=== PATIENT | female | born 1995 | race American Indian/Alaskan Native ===

== ENCOUNTER 2016-04-19 08:07 | Emergency (ER) | payer OTHER ==
[2016-04-19 09:01] LABS: Basophils % (Auto) 0.7 % (0.0-1.8); Eosinophils % (Auto) 1.8 % (0.0-4.3); Hematocrit 37.4 % (30.3-42.9); Hemoglobin 12.2 gm/dl (10.1-14.3); Mean Corpuscular HGB Conc 33 % (30-34); Mean Corpuscular Hemoglobin 29 pg (28-32); Mean Corpuscular Volume 88 fl (79-97); Platelet Count 193 K/mm3 (140-440); Red Blood Count 4.24 M/mm3 (3.65-5.03); Red Cell Distribution Width 13.7 % (13.2-15.2)
[2016-04-19 09:13] LABS: Anion Gap 16 mmol/L; BUN/Creatinine Ratio 12.85; Blood Urea Nitrogen 9 mg/dL (7-17); Calcium 8.5 mg/dL (8.4-10.2); Carbon Dioxide 24 mmol/L (22-30); Chloride 104.3 mmol/L (98-107); Glucose 89 mg/dL (65-100); Potassium 4.2 mmol/L (3.6-5.0); Sodium 140 mmol/L (137-145)
--- NOTE | 2016-04-19 11:38 | Emergency Department Report ---
ED Chest Pain HPI - General Chief Complaint: Chest Pain Stated Complaint: DIZZINESS Time Seen by Provider: 04/19/16 11:24 Source: patient Mode of arrival: Ambulatory Limitations: No Limitations - History of Present Illness Initial Comments: Pt reports chest pain, just R of midsternal, x 2 days. Reports sx worsen with deep breathing. No recent cough/URI. No hx of DVT/PE, no recent travel, no leg swelling. Does take OCPs. Denies any SOB, n/v. Also reports ZEE and dizziness that has nearly resolved at this time. LMP 1 week. MD Complaint: chest pain -: Gradual, days(s) (2) Onset: during rest Pain Location: right chest Pain Radiation: none Severity: moderate Severity scale (0 -10): 5 Quality: aching Consistency: constant Improves With: nothing Worsens With: inspiration re: denies: nausea, vomting, diaphoresis, dyspnea Other Symptoms: denies: cough, fever, syncope, rash, acid taste in mouth, palpitations Treatments Prior to Arrival: none Aspirin use within the Past 7 Days: (0) No - Related Data Previous Rx's Medication Instructions Recorded Last Taken Type Naproxen [Naprosyn] 500 mg PO BID PRN #20 tablet 04/19/16 Unknown Rx methylPREDNISolone [Medrol] 4 mg PO QAM #1 tab.ds.pk 04/19/16 Unknown Rx Allergies Allergy/AdvReac Type Severity Reaction Status Date / Time No Known Allergies Allergy Verified 11/04/14 09:10 CHANDLER score - Chandler Score Age > 65: (0) No Aspirin use within the Past 7 Days: (0) No 3 or more CAD Risk Factors: (0) No 2 or more Angina events in past 24 hrs: (0) No Known CAD with more than 50% Stenosis: (0) No Elevated Cardiac Markers: (0) No ST Deviation Greater than 0.5mm: (0) No CHANDLER Score: 0 ED Review of Systems ROS: Stated complaint: DIZZINESS Other details as noted in HPI Comment: All other systems reviewed and negative Constitutional: denies: chills, fever Eyes: denies: eye pain, eye discharge, vision change ENT: denies: ear pain, throat pain Respiratory: denies: cough, shortness of breath, wheezing Cardiovascular: as per HPI, chest pain. denies: palpitations Endocrine: no symptoms reported Gastrointestinal: denies: abdominal pain, nausea, diarrhea Genitourinary: denies: urgency, dysuria, discharge Musculoskeletal: denies: back pain, joint swelling, arthralgia Skin: denies: rash, lesions Neurological: headache. denies: weakness, paresthesias Psychiatric: denies: anxiety, depression Hematological/Lymphatic: denies: easy bleeding, easy bruising ED Past Medical Hx - Past Medical History Additional medical history: Hx chest pain - Surgical History Past Surgical History?: No - Social History Smoking Status: Never Smoker Substance Use Type: None - Medications Home Medications: Home Medications Medication Instructions Recorded Confirmed Last Taken Type Naproxen [Naprosyn] 500 mg PO BID PRN #20 tablet 04/19/16 Unknown Rx methylPREDNISolone [Medrol] 4 mg PO QAM #1 tab.ds.pk 04/19/16 Unknown Rx ED Physical Exam - General Limitations: No Limitations General appearance: alert, in no apparent distress - Head Head exam: Present: atraumatic, normocephalic - Eye Eye exam: Present: normal appearance, PERRL, EOMI - ENT ENT exam: Present: normal exam, normal orophraynx, mucous membranes moist - Neck Neck exam: Present: normal inspection, full ROM - Respiratory Respiratory exam: Present: normal lung sounds bilaterally. Absent: respiratory distress, wheezes - Cardiovascular Cardiovascular Exam: Present: regular rate, normal rhythm. Absent: systolic murmur, diastolic murmur, rubs, gallop - GI/Abdominal GI/Abdominal exam: Present: soft, normal bowel sounds. Absent: distended, tenderness, guarding, rebound - Extremities Exam Extremities exam: Present: normal inspection. Absent: pedal edema, calf tenderness - Back Exam Back exam: Present: normal inspection - Neurological Exam Neurological exam: Present: alert, oriented X3, CN II-XII intact, normal gait, reflexes normal. Absent: motor sensory deficit - Psychiatric Psychiatric exam: Present: normal affect, normal mood - Skin Skin exam: Present: warm, dry, intact, normal color. Absent: rash ED Course Vital Signs 04/19/16 08:33 Temperature 98.5 F Pulse Rate 70 Respiratory 16 Rate Blood Pressure 117/73 O2 Sat by Pulse 100 Oximetry - Reevaluation(s) Reevaluation #1: 04/19/16 12:39 NAD, stable for d/c. ED Medical Decision Making - Lab Data Result diagrams: 04/19/16 08:42 04/19/16 08:42 - EKG Data -: EKG Interpreted by Me EKG shows normal: sinus rhythm, axis, intervals, QRS complexes, ST-T waves Rate: normal - EKG Data When compared to previous EKG there are: previous EKG unavailable - Radiology Data Radiology results: report reviewed naf - Medical Decision Making Pt with atypical chest pain. HEART = 0. D-dimer is negative. EKG, CXR normal. Suspect pleurisy. Treatment, follow up, return precautions given to pt. - Differential Diagnosis pleurisy, MA, PE Critical care attestation.: If time is entered above; I have spent that time in minutes in the direct care of this critically ill patient, excluding procedure time. ED Disposition Clinical Impression: Chest pain Qualifiers: Chest pain type: unspecified Qualified Code(s): R07.9 - Chest pain, unspecified Disposition: DISCHARGED TO HOME OR SELFCARE Is pt being admited?: No Condition: Good Instructions: Chest Pain (ED), Pleurisy (ED) Prescriptions: methylPREDNISolone [Medrol] 4 mg PO QAM #1 tab.ds.pk Naproxen [Naprosyn] 500 mg PO BID PRN #20 tablet PRN Reason: Pain Referrals: PRIMARY CAREMD [Primary Care Provider] - 3-5 Days WESLEY VÁSQUEZ MD [Staff Physician] - 3-5 Days Forms: Work/School Release Form(ED) Time of Disposition: 12:43
--- NOTE | 2016-04-19 11:47 | XRay Report ---
CHEST 2 VIEWS INDICATION: Pain. COMPARISON: 02/10/2011. FINDINGS: PA and lateral chest radiographs demonstrate normal cardiomediastinal silhouette. Clear lungs, though inspiration poorer. Intact bones. CONCLUSION: No acute disease in the chest. Thank you for the opportunity to participate in this patient's care.
[2016-04-19 12:48] VITALS: BP 137/85
== END 2016-04-19 12:52 | disposition home or self-care (01) ==
LOC: ED 08:07
DX: R07.9 Chest pain, unspecified (principal)
CPT/HCPCS: 36415; 71020; 80048; 84484; 85025; 85379; 93005; 93010

== ENCOUNTER 2016-06-12 19:44 | Emergency (ER) | payer OTHER ==
[2016-06-12 20:26] VITALS: BP 128/78
[2016-06-12 21:55] LABS: Bacteria,Urine 1+ /HPF (Negative); Bilirubin,Urine NEG (Negative); Blood,Urine NEG (Negative); Ketones,Urine NEG (Negative); Leukocyte Esterase,Urine MOD (Negative); Mucus,Urine FEW /HPF; Nitrite,Urine NEG (Negative); Urobilinogen,Urine < 2.0 mg/dL (<2.0)
== END 2016-06-13 01:00 | disposition left against medical advice (07) ==
LOC: ED 19:44
DX: R10.9 Unspecified abdominal pain (principal); Z53.21 Procedure and treatment not carried out due to patient leaving prior to being seen by health care provider
CPT/HCPCS: 81001; 81025

== ENCOUNTER 2016-12-22 19:10 | Emergency (ER) | payer MEDICAID, OTHER ==
[2016-12-22 20:00] VITALS: BP 119/76
== END 2016-12-22 19:15 | disposition left against medical advice (07) ==
LOC: ED 19:10 → EDSTATUS 19:38 → TRG 19:45 → ED 19:46 → EDSTATUS 22:14
DX: Z53.21 Procedure and treatment not carried out due to patient leaving prior to being seen by health care provider (principal)

== ENCOUNTER 2017-02-05 19:56 | Outpatient (CLI) | payer MEDICAID ==
[2017-02-05] MEDS ORDERED: VISTARIL PO PRN (22:20)
[2017-02-08 03:59] VITALS: BP 127/72
== END 2017-02-05 22:40 | disposition home or self-care (01) ==
LOC: TRG 19:56
PROVIDERS: ATTEND Obstetrics & Gynecology
DX: O47.1 False labor at or after 37 completed weeks of gestation (principal); Z3A.39 39 weeks gestation of pregnancy
CPT/HCPCS: Q0177

== ENCOUNTER 2017-02-07 19:44 | Inpatient (IN) | payer MEDICAID ==
--- NOTE | 2017-02-07 20:42 | History and Physical Report ---
History of Present Illness Date of examination: 02/07/17 Date of admission: 02/07/17 20:34 Chief complaint: painful contractions every 3-5 minutes History of present illness: EDC Confirmation: 02/09/2017 Past History : 2 Term Births: 0 Premature Births: 0 Living Children: 0 Para: 0 Mult. Births: 0 Prev : 0 Prev. attempt? 0 Aborta: 1 Elect. Ab: 1 Spont. Ab: 0 Ectopics: 0 # 1 Delivery date: 04/2015 Delivery type: EAB Past Medical History: Nevaeh Past Surgical History: D&C: (2015) Family History Summary: Mother (biol.) - Has No Family History of Ovarvian Cancer - Entered On: 2016 Mother (biol.) - Has No Family History of Breast Cancer - Entered On: 08/29/2016 Mother (biol.) - Has Family History of Hypertension - Entered On: 08/29/2016 Mother (biol.) - Has Family History of Diabetes - Entered On: 08/29/2016 Mother (biol.) - Has Family History of CVA or Stroke - Entered On: 08/29/2016 Mother (biol.) - Has Family History of Coronary Heart Disease - Entered On: 08/29 Mother (biol.) - Has Family History Colon Cancer - Entered On: 08/29/2016 Social History: Patient is single unemployed Risk Factors: Smoked Tobacco Use: Never smoker Drug use: no Alcohol use: yes Drinks per day: social Dietary Counseling: pn yes Past Medical History 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 of genital herpes: no Partner hx. of genital herpes: no Genetic History Congenital Heart Defect: Mom: no Dad: no Олег Disease: Mom: no Dad: no Thalassemia Mom: no Dad: no Neural Tube Defect Mom: no Dad: no Down's Syndrome Mom: no Dad: no Paramjit-Sachs Mom: no Dad: no Sickle Cell Disease/Trait Mom: no Dad: no Hemophilia Mom: no Dad: no Muscular Dystrophy Mom: no Dad: no Cystic Fibrosis Mom: no Dad: no [place] Chorea Mom: no Dad: no Mental Retardation Mom: no Dad: no Fragile X Mom: no Dad: no Other Genetic/Chromosomal Disorder Mom: no Dad: no Child w/other defect Mom: no Dad: no Enviromental Exposures Xray Exposure: no Medication, drug, or alcohol use since LMP: no Chemical/Other Exposure: no Exposure to Cat Liter: no Hx of Parvovirus (Fifth Disease): no Active Medications (reviewed today): FORMULA 27-1 MG ORAL TABS ( VIT-FE FUMARATE-FA) 1 po q day as directed FLAGYL 500 MG TABS (METRONIDAZOLE) take 4 po now Current Allergies (reviewed today): No known allergies Past History Past Medical History: other (see HPI) Past Surgical History: other (see HPI) - Obstetrical History Expected Date of Delivery: 02/09/17 Actual Gestation: 39 Week(s) 5 Day(s) : 2 Para: 0 Hx # Term Pregnancies: 0 Number of Pregnancies: 0 Spontaneous Abortions: 0 Induced : 1 Number of Living Children: 0 Medications and Allergies Allergies Allergy/AdvReac Type Severity Reaction Status Date / Time No Known Allergies Allergy Verified 04/21/16 10:40 Home Medications Medication Instructions Recorded Confirmed Last Taken Type Naproxen [Naprosyn] 500 mg PO BID PRN #20 tablet 04/19/16 Unknown Rx methylPREDNISolone [Medrol] 4 mg PO QAM #1 tab.ds.pk 04/19/16 Unknown Rx ALBUTEROL Inhaler [ProAir HFA 1 puff IH Q4H PRN #1 inha 04/21/16 Unknown Rx Inhaler] Naproxen [Naprosyn TAB] 500 mg PO BID PRN #20 tablet 04/21/16 Unknown Rx Phenylephrine/Dm/Acetaminop/GG 10 ml PO Q6H PRN #1 bottle 04/21/16 Unknown Rx [Mucinex Gsgb-Gla-Mscsuxrjla Lq] Review of Systems All systems: negative - Vital Signs Vital signs: Vital Signs Pulse BP Pulse Ox 102 H 128/65 97 02/07/17 19:57 02/07/17 19:57 02/07/17 19:57 Temp Pulse Resp BP Pulse Ox 98.1 F 117 H 18 128/65 98 02/07/17 20:08 02/07/17 20:32 02/07/17 20:08 02/07/17 20:08 02/07/17 20:32 - Physical Exam Breasts: Positive: normal Cardiovascular: Regular rate Lungs: Positive: Clear to auscultation, Normal air movement Abdomen: Positive: normal appearance, soft, normal bowel sounds Genitourinary (Female): Positive: normal external genitalia, normal perenium Vulva: both: normal Vagina: Positive: normal moisture Uterus: Positive: normal size Anus/Rectum: Positive: normal perianal skin Deep Tendon Reflex Grade: Normal +2 - Obstetrical FHR: auscultation normal, category 1 Uterine Contraction Monitor Mode: External Cervical Dilatation: 4 (BBOW) Cervical Effacement Percentage: 70 station: -1 Uterine Contraction Frequency (min): 3-4 Uterine Contraction Duration: 60 Uterine Contraction Pattern: Regular Uterine Tone Measurement Phase: Contraction Uterine Contraction Intensity: Moderate Results All other labs normal. Patient: KACY PRINCE ID: [id number] Note: All result statuses are Final unless otherwise noted. Tests: (1) Profile I ([id number]) HBsAg Screen Negative Negative *1 Rubella Antibodies, IgG 1.93 index Immune >0.99 *2 Non-immune <0.90 Equivocal 0.90 - 0.99 Immune >0.99 ABO Grouping A *3 Rh Factor Positive *4 Please note: Prior records for this patient's ABO / Rh type are not available for additional verification. Antibody Screen Negative Negative *5 RPR Non Reactive Non Reactive *6 WBC 6.6 x10E3/uL 3.4-10.8 *7 RBC 4.11 x10E6/uL 3.77-5.28 *8 Hemoglobin 12.0 g/dL 11.1-15.9 *9 Hematocrit 36.8 % 34.0-46.6 *10 MCV 90 fL 79-97 *11 MCH 29.2 pg 26.6-33.0 *12 MCHC 32.6 g/dL 31.5-35.7 *13 RDW 14.4 % 12.3-15.4 *14 Platelets 189 x10E3/uL 150-379 *15 Neutrophils 68 % *16 Lymphs 27 % *17 Monocytes 5 % *18 Eos 0 % *19 Basos 0 % *20 ! Immature Cells <No Reported Value> *21 Neutrophils (Absolute) 4.5 x10E3/uL 1.4-7.0 *22 Lymphs (Absolute) 1.8 x10E3/uL 0.7-3.1 *23 Monocytes(Absolute) 0.3 x10E3/uL 0.1-0.9 *24 Eos (Absolute) 0.0 x10E3/uL 0.0-0.4 *25 Baso (Absolute) 0.0 x10E3/uL 0.0-0.2 *26 ! Immature Granulocytes 0 % *27 ! Immature Grans (Abs) 0.0 x10E3/uL 0.0-0.1 *28 ! NRBC <No Reported Value> *29 Hematology Comments: <No Reported Value> *30 Tests: (2) AFP Tetra ([id number]) ! Results Report *31 ! Test Results: *Screen Negative* *32 ! Gest. Age on Collection Date 18.6 WEEKS *33 ! Gestat. Age Based On DINORAH *34 02/09/2017 ! Maternal [age]INORAH 23[age]4 YEARS *35 ! Race Black *36 ! Weight 229 lbs *37 ! Insulin Dep Diabetes No *38 ! Multiple Gestation No *39 ! AFP Value 37.4 ng/mL *40 ! AFP MoM 0.95 *41 ! hCG Value 22377 mIU/mL *42 ! hCG MoM 0.69 *43 ! uE3 Value 1.40 ng/mL *44 ! uE3 MoM 1.04 *45 ! MICHELLE Value 142.60 pg/mL *46 ! MICHELLE MoM 1.01 *47 ! OSBR Risk 1 [place] [address] *48 ! DSR (Second Trimester) 1 [place] [address] *49 ! DSR (By Age) 1 IN 1091 *50 ! T18 Risk Not increased *51 ! T18 (By Age) 1:4250 *52 ! Interpretation NL42 *53 Interpretation: Screen Negative This result is screen negative for OSB, Down Syndrome and Trisomy 18. The AFP MoM and patient specific risks calculated are based on the gestational age and the clinical information provided. This test can identify up to 80% of open neural tube defects. Closed neural tube defects and some open defects may not be detected by this test. The combination of maternal age, AFP, hCG, uE3, and MICHELLE identifies 75-80% of Down Syndrome. The combination of maternal age, AFP, hCG and uE3 identifies 60% of Trisomy 18 pregnancies. The [employer] recommends amniocentesis be offered to women age 35 and older. Recalculations are not recommended when gestational dating by LMP and ultrasound are within 10 days. ! Comments: [facility] *54 Kae Smith, PhD, [facility] Director, Biochemical and Molecular Genetics References: Available Upon Request. Multiples Of Median Cutoffs Abbreviation Definitions For AFP Elevations IDD- Insulin Dep Diabetes Atkinson 2.5 Black 2.8 OSBR- Open Spina Bifida IDD 2.0 Twins 4.5 Risk DSR Cutoff 1:270 DSR- Down Syndrome Risk T18 Cutoff 1:100 T18- Trisomy 18 Down Syndrome and Trisomy 18 screening are considered Investigational For further inquiries contact [employer] at [phone]. ! PDF . *55 Tests: (3) Cystic Fibrosis Profile ([id number]) ! CF, Screen Comment: *56 RESULTS: Negative for 32 mutations analyzed Tests: (1) Chlamydia/GC Amplification ([id number]) Order Note: Clinical Information: SRC:VR SRC:UR Chlamydia trachomatis, ANA Negative Negative *1 Neisseria gonorrhoeae, ANA Negative Negative *2 Tests: (2) Strep Gp B ANA ([id number]) ! Strep Gp B ANA Negative Negative Assessment and Plan 21y/o admitted for labor @ 39+5 weeks , SVE /-1 with BBOW. GBS neg, Admission orders in EMR. Dr. Jones aware of admission. - Patient Problems (1) 39 weeks gestation of Current Visit: Yes Status: Acute (2) Active labor at term Current Visit: Yes Status: Acute
[2017-02-07] MEDS ORDERED: BRETHINE SUB-Q PRN (20:45)
[2017-02-07] MEDS ORDERED: ZOFRAN IV PRN (20:45)
[2017-02-07] MEDS ORDERED: SUBLIMAZE IV PRN (20:45)
[2017-02-07] MEDS ORDERED: ePHEDrine SULFATE IV PRN (20:45)
[2017-02-07] MEDS ORDERED: MINERAL OIL PO PRN (20:45)
[2017-02-07] MEDS ORDERED: XYLOCAINE 2% INFILTRATI ONE (20:45)
[2017-02-07] MEDS ORDERED: PITOCin/NS 30 UNIT/500ML 30 UNITS/500 ML BAG IV SCH (21:00)
[2017-02-07] MEDS ORDERED: PITOCin/NS 20 UNIT/1000ML DRIP 20 UNITS/1,000 ML BAG IV SCH (21:00)
[2017-02-07] MEDS: LACTATED RINGERS 1,000 ML IV SCH ×2 (21:00→22:15)
[2017-02-07 21:08] LABS: Hematocrit 37.5 % (30.3-42.9); Hemoglobin 12.2 gm/dl (10.1-14.3); Mean Corpuscular HGB Conc 33 % (30-34); Mean Corpuscular Hemoglobin 29 pg (28-32); Mean Corpuscular Volume 87 fl (79-97); Platelet Count 170 K/mm3 (140-440); Red Cell Distribution Width 14.4 % (13.2-15.2); White Blood Count 7.9 K/mm3 (4.5-11.0)
--- NOTE | 2017-02-07 22:28 | Progress Note ---
Assessment and Plan patient tolerating ctx well, denies need for epidural at this time (offered to patient PRN.) SVE 5-/-1 BBOW. AROM's clear with moderate amount of fluid. Anticipate . - Patient Problems (1) 39 weeks gestation of Current Visit: Yes Status: Acute (2) Active labor at term Current Visit: Yes Status: Acute Subjective - Subjective Date of service: 02/07/17 Principal diagnosis: IUP @ 39+5, active labor Interval history: EDC Confirmation: 02/09/2017 Past History : 2 Term Births: 0 Premature Births: 0 Living Children: 0 Para: 0 Mult. Births: 0 Prev : 0 Prev. attempt? 0 Aborta: 1 Elect. Ab: 1 Spont. Ab: 0 Ectopics: 0 # 1 Delivery date: 04/2015 Delivery type: EAB Past Medical History: Nevaeh Past Surgical History: D&C: (2015) Family History Summary: Mother (biol.) - Has No Family History of Ovarvian Cancer - Entered On: 2016 Mother (biol.) - Has No Family History of Breast Cancer - Entered On: 08/29/2016 Mother (biol.) - Has Family History of Hypertension - Entered On: 08/29/2016 Mother (biol.) - Has Family History of Diabetes - Entered On: 08/29/2016 Mother (biol.) - Has Family History of CVA or Stroke - Entered On: 08/29/2016 Mother (biol.) - Has Family History of Coronary Heart Disease - Entered On: 08/29 Mother (biol.) - Has Family History Colon Cancer - Entered On: 08/29/2016 Social History: Patient is single unemployed Risk Factors: Smoked Tobacco Use: Never smoker Drug use: no Alcohol use: yes Drinks per day: social Dietary Counseling: pn yes Past Medical History 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 of genital herpes: no Partner hx. of genital herpes: no Genetic History Congenital Heart Defect: Mom: no Dad: no Олег Disease: Mom: no Dad: no Thalassemia Mom: no Dad: no Neural Tube Defect Mom: no Dad: no Down's Syndrome Mom: no Dad: no Paramjit-Sachs Mom: no Dad: no Sickle Cell Disease/Trait Mom: no Dad: no Hemophilia Mom: no Dad: no Muscular Dystrophy Mom: no Dad: no Cystic Fibrosis Mom: no Dad: no [place] Chorea Mom: no Dad: no Mental Retardation Mom: no Dad: no Fragile X Mom: no Dad: no Other Genetic/Chromosomal Disorder Mom: no Dad: no Child w/other defect Mom: no Dad: no Enviromental Exposures Xray Exposure: no Medication, drug, or alcohol use since LMP: no Chemical/Other Exposure: no Exposure to Cat Liter: no Hx of Parvovirus (Fifth Disease): no Active Medications (reviewed today): FORMULA 27-1 MG ORAL TABS ( VIT-FE FUMARATE-FA) 1 po q day as directed FLAGYL 500 MG TABS (METRONIDAZOLE) take 4 po now Current Allergies (reviewed today): No known allergies Patient reports: movement normal, contractions Objective - Vital Signs Vital Signs: Vital Signs - 12hr 02/07/17 02/07/17 02/07/17 19:57 20:02 20:07 Temperature Pulse Rate 102 H 103 H 105 H Respiratory Rate Blood Pressure 128/65 Blood Pressure [Left] O2 Sat by Pulse 97 98 98 Oximetry 02/07/17 02/07/17 02/07/17 20:08 20:12 20:17 Temperature 98.1 F Pulse Rate 98 H 100 H Respiratory 18 Rate Blood Pressure Blood Pressure 128/65 [Left] O2 Sat by Pulse 97 97 Oximetry 02/07/17 02/07/17 02/07/17 20:22 20:27 20:32 Temperature Pulse Rate 100 H 127 H 117 H Respiratory Rate Blood Pressure Blood Pressure [Left] O2 Sat by Pulse 99 97 98 Oximetry 02/07/17 02/07/17 02/07/17 21:17 21:22 21:27 Temperature Pulse Rate 96 H 100 H 99 H Respiratory Rate Blood Pressure Blood Pressure [Left] O2 Sat by Pulse 97 98 95 Oximetry 02/07/17 02/07/17 02/07/17 21:32 21:37 21:42 Temperature Pulse Rate 89 93 H 105 H Respiratory Rate Blood Pressure Blood Pressure [Left] O2 Sat by Pulse 98 99 100 Oximetry 02/07/17 02/07/17 02/07/17 21:47 21:52 21:57 Temperature Pulse Rate 98 H 82 77 Respiratory Rate Blood Pressure Blood Pressure [Left] O2 Sat by Pulse 100 99 100 Oximetry 02/07/17 02/07/17 02/07/17 22:02 22:13 22:18 Temperature Pulse Rate 84 100 H 102 H Respiratory Rate Blood Pressure Blood Pressure [Left] O2 Sat by Pulse 98 99 99 Oximetry 02/07/17 22:23 Temperature Pulse Rate 91 H Respiratory Rate Blood Pressure Blood Pressure [Left] O2 Sat by Pulse 99 Oximetry - Exam Breasts: normal Cardiovascular: Regular rate Lungs: Clear to auscultation, Normal air movement Abdomen: Present: normal appearance, soft Vulva: both: normal Uterus: Present: normal FHR: category 1 Uterine Contraction Monitor Mode: External Cervical Dilatation: 5.5 (AROM clear) Cervical Effacement Percentage: 70 station: -1 Uterine Contraction Frequency (min): 2-4 Uterine Contraction Duration: 60-90 Uterine Contraction Pattern: Regular Uterine Tone Measurement Phase: Contraction Uterine Contraction Intensity: Moderate Extremities: normal Deep Tendon Reflex Grade: Normal +2 - Labs Labs: Laboratory Results - last 24 hr 02/07/17 02/07/17 20:31 20:31 WBC 7.9 RBC 4.30 Hgb 12.2 Hct 37.5 MCV 87 MCH 29 MCHC 33 RDW 14.4 Plt Count 170 Blood Type A POSITIVE Antibody Screen Negative
[2017-02-08] MEDS: LACTATED RINGERS 1,000 ML IV SCH (00:42)
[2017-02-08] MEDS ORDERED: NARCAN 2 MG/2 ML IV PRN (00:56)
[2017-02-08] MEDS ORDERED: ePHEDrine SULFATE IV PRN (00:56)
--- NOTE | 2017-02-08 00:56 | Anesthesia Consultation ---
Anesthesia Consult and Med Hx Date of service: 02/08/17 - Airway Anesthetic Teeth Evaluation: Good ROM Head & Neck: Adequate Mental/Hyoid Distance: Adequate Mallampati Class: Class II Intubation Access Assessment: Probably Good - Pulmonary Exam CTA: Yes - Cardiac Exam Cardiac Exam: RRR - Pre-Operative Health Status ASA Pre-Surgery Classification: ASA2 Proposed Anesthetic Plan: Epidural - Pulmonary Hx Asthma: No (bronchitis) COPD: No Hx Pneumonia: No - Cardiovascular System Hx Hypertension: No - Central Nervous System Hx Seizures: No Hx Psychiatric Problems: No - Endocrine Hx Renal Disease: No Hx End Stage Renal Disease: No Hx Hypothyroidism: No Hx Hyperthyroidism: No - Hematic Hx Anemia: No Hx Sickle Cell Disease: No - Other Systems Hx Alcohol Use: No
[2017-02-08] MEDS ORDERED: fentaNYL-BUPIV 2 MCG/ML-0.125% 200 MCG/100 ML BAG EPIDURAL SCH (01:00)
--- NOTE | 2017-02-08 03:46 | Procedure Note ---
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 infant placed skin to skin on mother's abd. 3 vessel cord clamped and cut. placenta del intact and complete. 2nd degree lac repaired in the usual fashion. EBL 300, infant's wt 7#3oz, apgars 8/9. mother and infant remain LDR stable. - Infant A at 1 minute: 8 at 5 minutes: 9 Gender: Female (7#3)
[2017-02-08] MEDS ORDERED: LANSINOH TP PRN (05:33)
[2017-02-08] MEDS ORDERED: SODIUM CHLORIDE FLUSH SYRINGE 10 ML IV NR (05:33)
[2017-02-08] MEDS ORDERED: TUCKS PAD TP PRN (05:33)
[2017-02-08] MEDS ORDERED: DULCOLAX PR PRN (05:33)
[2017-02-08] MEDS ORDERED: DERMOPLAST TP PRN (05:33)
[2017-02-08] MEDS ORDERED: PHENERGAN PO PRN (05:33)
[2017-02-08] MEDS ORDERED: MILK OF MAGNESIA PO PRN (05:33)
[2017-02-08] MEDS ORDERED: PITOCin/NS 20 UNIT/1000ML DRIP 20 UNITS/1,000 ML BAG IV SCH (05:33)
[2017-02-08] MEDS ORDERED: TYLENOL PO PRN (05:33)
[2017-02-08] MEDS ORDERED: BENADRYL PO PRN (05:33)
[2017-02-08] MEDS ORDERED: NORCO 5/325 PO PRN (05:33)
[2017-02-08] MEDS ORDERED: PRENATAL VITAMIN PO SCH (10:00)
[2017-02-08] MEDS: MOTRIN PO SCH ×3 (12:40→23:58)
[2017-02-08] MEDS: COLACE PO SCH ×2 (12:40→22:23)
[2017-02-08 17:28] LABS: Hematocrit 31.2 % (30.3-42.9); Hemoglobin 10.3 gm/dl (10.1-14.3)
[2017-02-09] MEDS: MOTRIN PO SCH (05:21)
[2017-02-09] MEDS ORDERED: BOOSTRIX IM ONE (06:00)
--- NOTE | 2017-02-09 08:33 | Progress Note ---
Assessment and Plan Patient doing well, requests d/c home this AM. Lochia scant, fundus firm, H&H 10.3/31.2, VSSAF. Plan for d/c home with routine f/u in office. - Patient Problems (1) (normal spontaneous vaginal delivery) Current Visit: Yes Status: Acute Subjective - Subjective Date of service: 02/09/17 Principal diagnosis: day #1 s/p Interval history: EDC Confirmation: 02/09/2017 Past History : 2 Term Births: 0 Premature Births: 0 Living Children: 0 Para: 0 Mult. Births: 0 Prev : 0 Prev. attempt? 0 Aborta: 1 Elect. Ab: 1 Spont. Ab: 0 Ectopics: 0 # 1 Delivery date: 04/2015 Delivery type: EAB Past Medical History: Brochitis Past Surgical History: D&C: (2015) Family History Summary: Mother (biol.) - Has No Family History of Ovarvian Cancer - Entered On: 2016 Mother (biol.) - Has No Family History of Breast Cancer - Entered On: 08/29/2016 Mother (biol.) - Has Family History of Hypertension - Entered On: 08/29/2016 Mother (biol.) - Has Family History of Diabetes - Entered On: 08/29/2016 Mother (biol.) - Has Family History of CVA or Stroke - Entered On: 08/29/2016 Mother (biol.) - Has Family History of Coronary Heart Disease - Entered On: 08/29 Mother (biol.) - Has Family History Colon Cancer - Entered On: 08/29/2016 Social History: Patient is single unemployed Risk Factors: Smoked Tobacco Use: Never smoker Drug use: no Alcohol use: yes Drinks per day: social Dietary Counseling: pn yes Past Medical History Surgery (Non-urogynecology physician): D&C: (2015) Abnormal PAP: negative Uterine Anomaly: negative Social Hx: Patient is single unemployed Infection History Hx of STD: none Personal hx. of genital herpes: no Partner hx. of genital herpes: no Genetic History Congenital Heart Defect: Mom: no Dad: no Олег Disease: Mom: no Dad: no Thalassemia Mom: no Dad: no Neural Tube Defect Mom: no Dad: no Down's Syndrome Mom: no Dad: no Paramjit-Sachs Mom: no Dad: no Sickle Cell Disease/Trait Mom: no Dad: no Hemophilia Mom: no Dad: no Muscular Dystrophy Mom: no Dad: no Cystic Fibrosis Mom: no Dad: no [place] Chorea Mom: no Dad: no Mental Retardation Mom: no Dad: no Fragile X Mom: no Dad: no Other Genetic/Chromosomal Disorder Mom: no Dad: no Child w/other defect Mom: no Dad: no Enviromental Exposures Xray Exposure: no Medication, drug, or alcohol use since LMP: no Chemical/Other Exposure: no Exposure to Cat Liter: no Hx of Parvovirus (Fifth Disease): no Active Medications (reviewed today): FORMULA 27-1 MG ORAL TABS ( VIT-FE FUMARATE-FA) 1 po q day as directed FLAGYL 500 MG TABS (METRONIDAZOLE) take 4 po now Current Allergies (reviewed today): No known allergies Patient reports: appetite normal, voiding normally, pain well controlled, ambulating normally, no dizzy ambulation, no nauseated [place]: doing well, nursing well (breast and bottle feeding) Objective - Vital Signs Latest vital signs: Vital Signs Temp Pulse Resp BP 02/09/17 00:00 98.2 F 79 18 111/66 02/08/17 17:00 98.6 F 67 18 104/52 02/08/17 12:40 98.2 F 72 18 119/62 02/08/17 09:30 98.4 F 69 18 109/59 Intake and Output 02/08/17 02/09/17 02/09/17 23:59 07:59 15:59 Intake Total 240 120 Balance 240 120 Intake: Oral 240 120 Other: Total, Intake Amount 120 120 # Voids Void 1 1 - Exam Breasts: Present: normal, Cardiovascular: Present: Regular rate Lungs: Present: Clear to auscultation, Normal air movement Abdomen: Present: normal appearance, soft Vulva: both: laceration/episiotomy Uterus: Present: normal, firm, fundal height at umbilicus Extremities: Present: normal Deep Tendon Reflex Grade: Normal +2 Incision: Present: normal, dry
--- NOTE | 2017-02-09 08:35 | Discharge Summary ---
Providers - Providers Date of Admission: 02/07/17 20:34 Date of discharge: 02/09/17 (desires d/c home today) Attending physician: DEVAN PAZ 02/08/17 05:33 Consult to Line Ordering Clinician [CONS] Routine Reason For Exam: assistance with , SNS Primary care physician: DEVAN PAZ Hospitalization Reason for admission: active labor Delivery: Episiotomy: none Laceration: 2nd degree Incision: normal, dry, intact Other procedures: none complications: none Discharge diagnosis: IUP at term delivered [place] baby: female Hospital course: uncomplicated vaginal Condition at discharge: Good Disposition: DC-01 TO HOME OR SELFCARE - Discharge Diagnoses (1) (normal spontaneous vaginal delivery) Status: Acute Plan - Provider Discharge Summary Activity: routine, no sex for 6 weeks, no heavy lifting 4 weeks, no strenuous exercise Diet: routine Instructions: routine Additional instructions: [] Smoking cessation referral if applicable(refer to patient education folder for contact #) [] Refer to [facility] Booklet Call your doctor immediately for: * Fever > 100.5 * Heavy vaginal bleeding ( >1 pad per hour) * Severe persistent headache * Shortness of breath * Reddened, hot, painful area to leg or breast * Drainage or odor from incision. * Keep incision clean and dry at all times and follow doctor's instructions regarding bathing/showering - Follow up plan Follow up: DEVAN PAZ MD [Primary Care Provider] - 03/16/17 (Congratulations! Please call [phone] to schedule your visit in 4 weeks. Call for any questions or concerns. )
[2017-02-09 12:50] VITALS: BP 114/76
== END 2017-02-09 12:06 | disposition home or self-care (01) | DRG 775 ==
LOC: TRG 19:44 → LD 20:34 → OB 02-08 06:31
PROVIDERS: ADMIT Obstetrics & Gynecology; ATTEND Obstetrics & Gynecology
PROC: 10907ZC Drainage of Amniotic Fluid, Therapeutic from Products of Conception, Via Natural or Artificial Opening (ICD-10-PCS; 2017-02-07)
PROC: 10E0XZZ Delivery of Products of Conception, External Approach (ICD-10-PCS; principal; 2017-02-08)
PROC: 0KQM0ZZ Repair Perineum Muscle, Open Approach (ICD-10-PCS; 2017-02-08)
PROC: 3E0R3BZ Introduction of Anesthetic Agent into Spinal Canal, Percutaneous Approach (ICD-10-PCS; 2017-02-08)
PROC: 00HU33Z Insertion of Infusion Device into Spinal Canal, Percutaneous Approach (ICD-10-PCS; 2017-02-08)
DX: O99.314 Alcohol use complicating childbirth (principal); O70.1 Second degree perineal laceration during delivery; Z37.0 Single live birth; Z3A.39 39 weeks gestation of pregnancy; Z82.49 Family history of ischemic heart disease and other diseases of the circulatory system; Z83.3 Family history of diabetes mellitus; Z82.3 Family history of stroke; Z80.8 Family history of malignant neoplasm of other organs or systems; Z72.89 Other problems related to lifestyle; Z79.899 Other long term (current) drug therapy
CPT/HCPCS: 36415; 85014; 85018; 85027; 86592; 86850; 86900; 86901; 99211; G0463; J2590; J3010; J7120

== ENCOUNTER 2018-11-07 08:34 | Emergency (ER) | payer MEDICAID ==
[2018-11-07 08:40] VITALS: BP 123/77
--- NOTE | 2018-11-07 09:36 | Emergency Department Report ---
Minor Respiratory - HPI Chief Complaint: Upper Respiratory Infection Stated Complaint: SOB/CHILLS/HEADACHES/PAIN Time Seen by Provider: 11/07/18 09:32 Duration: Today Severity: mild Minor Respiratory: Yes Able to Tolerate Fluids, Yes Shortness of Breath, Yes Fever, No Rhinorrhea, No Sore Throat, No Ear Pain, No Cough, No Sick Contacts, No Hemoptysis, No Chest Pain Other History: Patient is a 23-year-old female who is complaining of 1 day of body aches chills. The patient states that occasionally she will have some mild shortness of breath and mild headache. Patient denies nausea vomiting diarrhea or cough congestion dysuria or abdominal pain. ED Review of Systems ROS: Stated complaint: SOB/CHILLS/HEADACHES/PAIN Other details as noted in HPI Comment: All other systems reviewed and negative ED Past Medical Hx - Past Medical History Previous Medical History?: No Hx Hypertension: No Hx Congestive Heart Failure: No Hx Diabetes: No Hx Deep Vein Thrombosis: No Hx Renal Disease: No Hx Sickle Cell Disease: No Hx Seizures: No Hx Asthma: Yes (bronchitis) Hx COPD: No Hx HIV: No Additional medical history: Hx chest pain, Heart murmur - Surgical History Past Surgical History?: No - Social History Smoking Status: Never Smoker Substance Use Type: None - Medications Home Medications: Home Medications Medication Instructions Recorded Confirmed Last Taken Type Naproxen [Naprosyn] 500 mg PO BID PRN #20 tablet 04/19/16 02/08/17 Unknown Rx methylPREDNISolone [Medrol] 4 mg PO QAM #1 tab.ds.pk 04/19/16 02/08/17 Unknown Rx ALBUTEROL Inhaler (OR & NICU) 1 puff IH Q4H PRN #1 inha 04/21/16 02/08/17 Unknown Rx [ProAir HFA Inhaler] Naproxen [Naprosyn TAB] 500 mg PO BID PRN #20 tablet 04/21/16 02/08/17 Unknown Rx Phenylephrine/Dm/Acetaminop/GG 10 ml PO Q6H PRN #1 bottle 04/21/16 02/08/17 Unknown Rx [Mucinex Hurb-Kqi-Ozrhdeiksg Lq] Minor Respiratory Exam - Exam General: Vital signs noted. No distress. Alert and acting appropriately. HEENT: Yes Moist Mucous Membranes, No Pharyngeal Erythema, No Pharyngeal Exudates, No Rhinorrhea, No Conjuctival Injection, No Frontal Tenderness, No Maxillary Tenderness Ear: Neither TM Bulge, Neither TM Erythema, Neither EAC Pain, Neither EAC Discharge Neck: Yes Supple, No Adenopathy Lungs: Yes Good Air Exchange, No Wheezes, No Ronchi, No Stridor, No Cough, No Labored Respirations, No Retractions, No Use of Accessory Muscles, No Other Abnormal Lung Sounds Heart: Yes Regular, No Murmur Abdomen: Yes Normal Bowel Sounds, No Tenderness, No Peritoneal Signs Skin: No Rash, No Edema Neurologic: Alert and oriented, no deficits. Musculoskeletal: Unremarkable. ED Course Vital Signs 11/07/18 08:37 Temperature 98.7 F Pulse Rate 123 H Respiratory 16 Rate Blood Pressure 123/77 O2 Sat by Pulse 100 Oximetry ED Medical Decision Making - Medical Decision Making Patient is a 23-year-old female with a one-day history of some body aches and chills. Patient likely with a viral syndrome starting. Patient has not taken any Tylenol or Motrin [id number] or any other medications. Patient is a medical emergency at this time. Patient will be referred to qualified urgent care however the patient likely will improve with medications which are [id number] and is then told to the patient. Critical care attestation.: If time is entered above; I have spent that time in minutes in the direct care of this critically ill patient, excluding procedure time. ED Disposition Clinical Impression: Viral syndrome Disposition: MED SCREENING EXAM-LEFT Is pt being admited?: No Does the pt Need Aspirin: No Condition: Stable Instructions: Viral Syndrome (ED) Additional Instructions: Please take Tylenol Motrin for body aches and possible fever. Return to emergency department if you are having uncontrolled nausea vomiting or begin to have a severe cough with shortness of breath or abdominal pain. Referrals: ONEL HUERTA MD [Referring] - 3-5 Days Time of Disposition: 09:35
== END 2018-11-07 09:40 | disposition left against medical advice (07) ==
LOC: ED 08:34
DX: B34.9 Viral infection, unspecified (principal); J45.909 Unspecified asthma, uncomplicated
CPT/HCPCS: 99281

== ENCOUNTER 2021-02-26 02:57 | Emergency (ER) | payer MEDICAID ==
[2021-02-26] MEDS ORDERED: HYDROcodone/ACETAMINOPHEN 5-325 MG TAB PO ONE (06:10)
[2021-02-26] MEDS ORDERED: IBUPROFEN 600 MG TAB PO ONE (06:10)
[2021-02-26] MEDS ORDERED: TETANUS,DIPH,PERTUSS(ACELL) VACCINE 0.5 ML SYRINGE IM ONE (06:10)
[2021-02-26] MEDS ORDERED: ONDANSETRON 4 MG ODT TAB PO ONE (06:10)
--- NOTE | 2021-02-26 06:15 | Emergency Department Report ---
ED Upper Extremity Inj HPI - General Chief Complaint: Extremity Injury, Upper Stated Complaint: RIGHT FINGER INJURY Source: patient Mode of arrival: Ambulatory Limitations: No Limitations - History of Present Illness Initial Comments: Patient is a 25-year-old -Japanese female with a history of chronic bronchitis who presented to the ED with complaint of acute onset persistent severe distal right index finger pain with partial nail avulsion after her acrylic nails were hyperextended and pulled by a fabric about 6 hours ago causing partial tear and avulsion of the acrylic nail from the nailbed. Patient states that the pain has been persistent and constant and that she is unable to perform any active range of motion with the right index finger. Patient states that she is not up-to-date with tetanus vaccination. Patient denies numbness and tingling or weakness of right hand or right index finger, chest pain, shortness of breath, nausea and vomiting or dizziness and fall. MD Complaint: Injury to:: right, finger (distal right index finger pain with partial nail avulsion) -: Sudden, hour(s) (6) Other Extremity Injury: Fingers: Right (distal right index finger ) Other Injuries: none Handedness: right Place: home Severity scale (0 -10): 8 Improves With: none Worsens With: movement of extremity Context: direct blow (fingernail caught on a fabric), injury Associated Symptoms: denies other symptoms. denies: weakness, numbness, neck pain, suspects foreign body, nausea/vomiting, heard/felt popping sensat - Related Data Previous Rx's Medication Instructions Recorded Last Taken Type Naproxen [Naprosyn] 500 mg PO BID PRN #20 tablet 04/19/16 Unknown Rx methylPREDNISolone [Medrol] 4 mg PO QAM #1 tab.ds.pk 04/19/16 Unknown Rx Albuterol Mdi (or & Nicu Only) 1 puff IH Q4H PRN #1 inha 04/21/16 Unknown Rx [ProAir HFA Inhaler] Naproxen [Naprosyn TAB] 500 mg PO BID PRN #20 tablet 04/21/16 Unknown Rx Phenylephrine/Dm/Acetaminop/GG 10 ml PO Q6H PRN #1 bottle 04/21/16 Unknown Rx [Mucinex Kwlm-Yov-Sggrlnjarm Lq] Ibuprofen [Motrin] 800 mg PO Q8HR PRN #30 tablet 02/26/21 Unknown Rx cephALEXin [Keflex] 500 mg PO Q8HR #30 cap 02/26/21 Unknown Rx Allergies Allergy/AdvReac Type Severity Reaction Status Date / Time No Known Allergies Allergy Verified 04/21/16 10:40 ED Review of Systems ROS: Stated complaint: RIGHT FINGER INJURY Other details as noted in HPI Constitutional: denies: chills, fever Eyes: denies: eye pain, eye discharge, vision change ENT: denies: ear pain, throat pain Respiratory: denies: cough, shortness of breath, wheezing Cardiovascular: denies: chest pain, palpitations Endocrine: no symptoms reported Gastrointestinal: denies: abdominal pain, nausea, diarrhea Genitourinary: denies: urgency, dysuria, discharge Musculoskeletal: arthralgia (distal right inde finger pain with partial nail avulsion). denies: back pain, joint swelling Skin: denies: rash, lesions Neurological: denies: headache, weakness, paresthesias Psychiatric: denies: anxiety, depression Hematological/Lymphatic: denies: easy bleeding, easy bruising ED Past Medical Hx - Past Medical History Previous Medical History?: Yes Hx Hypertension: No Hx Congestive Heart Failure: No Hx Diabetes: No Hx Deep Vein Thrombosis: No Hx Renal Disease: No Hx Sickle Cell Disease: No Hx Seizures: No Hx Asthma: Yes (bronchitis) Hx COPD: No Hx HIV: No Additional medical history: Hx chest pain, Heart murmur - Surgical History Past Surgical History?: No - Social History Smoking Status: Never Smoker Substance Use Type: None - Medications Home Medications: Home Medications Medication Instructions Recorded Confirmed Last Taken Type Naproxen [Naprosyn] 500 mg PO BID PRN #20 tablet 04/19/16 02/08/17 Unknown Rx methylPREDNISolone [Medrol] 4 mg PO QAM #1 tab.ds.pk 04/19/16 02/08/17 Unknown Rx Albuterol Mdi (or & Nicu Only) 1 puff IH Q4H PRN #1 inha 04/21/16 02/08/17 Unknown Rx [ProAir HFA Inhaler] Naproxen [Naprosyn TAB] 500 mg PO BID PRN #20 tablet 04/21/16 02/08/17 Unknown Rx Phenylephrine/Dm/Acetaminop/GG 10 ml PO Q6H PRN #1 bottle 04/21/16 02/08/17 Unknown Rx [Mucinex Kmtz-Cwo-Qrdugztoog Lq] Ibuprofen [Motrin] 800 mg PO Q8HR PRN #30 tablet 02/26/21 Unknown Rx cephALEXin [Keflex] 500 mg PO Q8HR #30 cap 02/26/21 Unknown Rx ED Physical Exam - General Limitations: No Limitations General appearance: alert, in no apparent distress - Head Head exam: Present: atraumatic, normocephalic, normal inspection - Eye Eye exam: Present: normal appearance, PERRL, EOMI Pupils: Present: normal accommodation - ENT ENT exam: Present: normal exam, normal orophraynx, mucous membranes moist, TM's normal bilaterally, normal external ear exam - Neck Neck exam: Present: normal inspection, full ROM - Respiratory Respiratory exam: Present: normal lung sounds bilaterally. Absent: respiratory distress, wheezes, rales, rhonchi, chest wall tenderness, accessory muscle use, prolonged expiratory, other - Cardiovascular Cardiovascular Exam: Present: regular rate, normal rhythm, normal heart sounds. Absent: systolic murmur, diastolic murmur, rubs, gallop - GI/Abdominal GI/Abdominal exam: Present: soft, normal bowel sounds. Absent: tenderness, guarding, rebound, hyperactive bowel sounds, hypoactive bowel sounds, organomegaly, mass - Extremities Exam Extremities exam: Present: normal inspection, full ROM, tenderness (Palpable severe distal right index finger tenderness with partial nail avulsion), normal capillary refill - Back Exam Back exam: Present: normal inspection, full ROM. Absent: tenderness, CVA tenderness (R), muscle spasm, paraspinal tenderness, vertebral tenderness - Neurological Exam Neurological exam: Present: alert, oriented X3, CN II-XII intact, normal gait, reflexes normal - Psychiatric Psychiatric exam: Present: normal affect, normal mood - Skin Skin exam: Present: warm, dry, intact, normal color, other (Distal right index finger nail partial avulsion). Absent: rash ED Course Vital Signs 02/26/21 02:59 Temperature 97.7 F Pulse Rate 98 H Respiratory 18 Rate Blood Pressure 131/81 O2 Sat by Pulse 99 Oximetry ED Medical Decision Making - Medical Decision Making This is a 25-year-old -Japanese female with a history of chronic bronchitis who presented to the ED with complaint of acute onset persistent severe distal right index finger pain with partial nail avulsion after her acrylic nails were hyperextended and pulled by a fabric about 6 hours ago causing partial tear and avulsion of the acrylic nail from the nailbed. Patient states that the pain has been persistent and constant and that she is unable to perform any active range of motion with the right index finger. Patient states that she is not up-to-date with tetanus vaccination. In the ED, patient is alert and oriented x3 and is not in any distress. Patient however appears to be in significant pain. Patient was treated for pain in the ED and the distal right index finger was splinted for comfort with a finger splint and dressed appropriately. Patient also received booster tetanus vaccination in the ED. Patient was therefore discharged home on pain medications and prophylactic antibiotics and was advised to follow-up with her primary care physician in 5 to 7 days for reevaluation or return to the ED immediately if symptoms get worse. - Differential Diagnosis Fingernail avulsion; finger sprain; finger abrasion Critical care attestation.: If time is entered above; I have spent that time in minutes in the direct care of this critically ill patient, excluding procedure time. ED Disposition Clinical Impression: Abrasion of right index finger, initial encounter Nail avulsion, finger Qualifiers: Encounter type: initial encounter Qualified Code(s): S61.309A - Unspecified open wound of unspecified finger with damage to nail, initial encounter Disposition: 01 HOME / SELF CARE / HOMELESS Is pt being admited?: No Does the pt Need Aspirin: No Condition: Stable Instructions: Wound Care, Adult, Fingernail or Toenail Removal, Adult, Care After, Nail Avulsion Additional Instructions: Take medication with food, drink plenty of fluids and follow-up with your primary care physician in 7 to 10 days for reevaluation. Return to the ED immediately if symptoms get worse. Prescriptions: cephALEXin [Keflex] 500 mg PO Q8HR #30 cap Ibuprofen [Motrin] 800 mg PO Q8HR PRN #30 tablet PRN Reason: Pain , Severe (7-10) Referrals: [facility] [Provider Group] - 7-10 days Time of Disposition: 06:18 Print Language: PASHTO
[2021-02-26 07:11] VITALS: BP 135/70
== END 2021-02-26 07:08 | disposition home or self-care (01) ==
LOC: ED 02:57
DX: S60.410A Abrasion of right index finger, initial encounter (principal); S61.309A Unspecified open wound of unspecified finger with damage to nail, initial encounter; X58.XXXA Exposure to other specified factors, initial encounter; Y93.89 Activity, other specified; Y92.89 Other specified places as the place of occurrence of the external cause; Y99.8 Other external cause status
CPT/HCPCS: 90471; 90715; 99282; J3490; Q0162